=== PATIENT | female | born 1995 | race Caucasian/White ===

== ENCOUNTER 2017-01-26 01:47 | Emergency (ER) | payer MEDICAID ==
--- NOTE | 2017-01-26 02:15 | EDM.PDOC ---
ED HPI GENERAL MEDICAL PROBLEM - General Chief Complaint: General Stated Complaint: BP HIGH? [id number] Time Seen by Provider: 01/26/17 01:50 Source of Information: Reports: Patient History Limitations: Reports: No Limitations - History of Present Illness INITIAL COMMENTS - FREE TEXT/NARRATIVE: ED with question of high BP, G1PO 37/6 Due February 08. Notes seen in clinic this week by Dr. Covarrubias and patient reports she was told that if BP greater than 140 she would be induced on Sunday. Occasional nausea after eating without vomiting , Headache this am but resolved. Feet feel more swollen and hands puffy. No noted contractions, no discharge. No urinary complaints. Occasional dizziness with position change. No visual changes Pelvic Pain Score (Numeric/FACES): 6 - Related Data Allergies Allergy/AdvReac Type Severity Reaction Status Date / Time Sulfa (Sulfonamide Allergy Airway Verified 01/26/17 01:53 Antibiotics) Tightness Home Meds: Home Meds . 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, Musculoskeletal History: Reports: None Neurological History: Reports: None Psychiatric History: Reports: None Endocrine/Metabolic History: Reports: None Hematologic History: Reports: None Immunologic History: Reports: None Oncologic (Cancer) History: Reports: None Dermatologic History: Reports: None Social & Family History - Tobacco Use Smoking Status *Q: Heavy Tobacco Smoker Years of Tobacco use: 2 Packs/Tins Daily: 0.5 - Caffeine Use Caffeine Use: Reports: Soda - Recreational Drug Use Recreational Drug Use: No ED ROS GENERAL - Review of Systems Review Of Systems: ROS reveals no pertinent complaints other than HPI. ED EXAM, GENERAL - Physical Exam Exam: See Below Exam Limited By: No Limitations General Appearance: Alert, No Apparent Distress Eye Exam: Bilateral Eye: EOMI, PERRL Ears: Normal External Exam, Normal TMs Nose: Normal Inspection Throat/Mouth: Normal Inspection Head: Atraumatic, Normocephalic Neck: Normal Inspection, Full Range of Motion Respiratory/Chest: No Respiratory Distress, Lungs Clear, Normal Breath Sounds Cardiovascular: Normal Peripheral Pulses, Regular Rate, Rhythm GI/Abdominal: Normal Bowel Sounds (Female) Exam: Heart Tones (140's), Other (Gravid uterus). No: Uterine Tenderness Neurological: Alert, Oriented, CN II-XII Intact, Normal Cognition, Normal Gait Psychiatric: Normal Affect Skin Exam: Warm, Dry, Intact, Normal Color Course - Vital Signs Last Recorded V/S: Last Vital Signs Temp 97.2 F 01/26/17 01:49 Pulse 110 H 01/26/17 01:49 Resp 18 01/26/17 01:49 BP 113/79 01/26/17 02:44 Pulse Ox 99 01/26/17 01:49 - Orders/Labs/Meds Labs: Laboratory Tests 01/26/17 01/26/17 01/26/17 Range/Units 02:00 02:00 02:00 WBC (5.0-10.0) 10^3/uL RBC (4.2-5.4) 10^6/uL Hgb (12.0-16.0) g/dL Hct (37.0-47.0) % MCV (80-100) fL MCH (27.0-34.0) pg MCHC (33.0-35.0) g/dL Plt Count (150-450) 10^3/uL Neut % (Auto) (42.2-75.2) % Lymph % (Auto) (20.5-50.1) % Chel[place] % (Auto) (2-8) % Eos % (Auto) (1.0-3.0) % Baso % (Auto) (0.0-1.0) % PT (9.0-12.0) SEC INR (0.9-1.2) APTT (22.0-34.0) SEC Sodium (135-145) mmol/L Potassium (3.6-5.0) mmol/L Chloride (101-111) mmol/L Carbon Dioxide (21.0-31.0) mmol/L Anion Gap BUN (7-18) mg/dL Creatinine (0.6-1.3) mg/dL Est Cr Clr Drug Dosing mL/min Estimated GFR (MDRD) BUN/Creatinine Ratio Glucose (74-105) mg/dL Uric Acid (2.6-7.2) mg/dL Calcium (8.4-10.2) mg/dl Magnesium (1.8-2.5) mg/dL Total Bilirubin (0.2-1.0) mg/dL AST (10-42) IU/L ALT (10-60) IU/L Alkaline Phosphatase (42-121) IU/L Lactate Dehydrogenase (91-180) IU/L Total Protein (6.7-8.2) g/dl Albumin (3.2-5.5) g/dl Globulin Albumin/Globulin Ratio Urine Color Yellow (YELLOW) Urine Appearance Slightly cloudy (CLEAR) Urine pH 6.5 (5.0-9.0) Ur Specific Peerless 1.010 (1.005-1.030) Urine Protein Negative (NEGATIVE) Urine Glucose (UA) Negative (NEGATIVE) Urine Ketones Negative (NEGATIVE) Urine Occult Blood Negative (NEGATIVE) Urine Nitrite Negative (NEGATIVE) Urine Bilirubin Negative (NEGATIVE) Urine Urobilinogen 0.2 (0.2-1.0) mg/dL Ur Leukocyte Esterase Small H (NEGATIVE) Urine RBC Not seen /HPF Urine WBC 10-20 H (0-5/HPF) /HPF Ur Epithelial Cells Many H /HPF Urine Bacteria Occasional (0-FEW/HPF) /HPF Urine Mucus Occasional /LPF Ur Random Creatinine 40 mg/dL U Random Total Protein 8 (0.00-9.9) mg/dL Protein/Creatinin Ratio 0.20 Urine Opiates Screen Negative (NEGATIVE) Ur Oxycodone Screen Negative (NEGATIVE) Urine Methadone Screen Negative (NEGATIVE) Ur Barbiturates Screen Negative (NEGATIVE) U Tricyclic Antidepress Negative (NEGATIVE) Ur Phencyclidine Scrn Negative (NEGATIVE) Ur Amphetamine Screen Negative (NEGATIVE) U Methamphetamines Scrn Negative (NEGATIVE) Urine MDMA Screen Negative (NEGATIVE) U Benzodiazepines Scrn Negative (NEGATIVE) Urine Cocaine Screen Negative (NEGATIVE) U Marijuana (THC) Screen Negative (NEGATIVE) 01/26/17 01/26/17 01/26/17 Range/Units 02:02 02:02 02:02 WBC 18.2 H (5.0-10.0) 10^3/uL RBC 4.44 (4.2-5.4) 10^6/uL Hgb 13.5 (12.0-16.0) g/dL Hct 39.6 (37.0-47.0) % MCV 89.2 (80-100) fL MCH 30.4 (27.0-34.0) pg MCHC 34.1 (33.0-35.0) g/dL Plt Count 207 (150-450) 10^3/uL Neut % (Auto) 80.6 H (42.2-75.2) % Lymph % (Auto) 11.9 L (20.5-50.1) % Chel[place] % (Auto) 6.9 (2-8) % Eos % (Auto) 0.4 L (1.0-3.0) % Baso % (Auto) 0.2 (0.0-1.0) % PT 8.6 L (9.0-12.0) SEC INR 0.9 (0.9-1.2) APTT 26.1 (22.0-34.0) SEC Sodium 133 L (135-145) mmol/L Potassium 3.6 (3.6-5.0) mmol/L Chloride 105 (101-111) mmol/L Carbon Dioxide 20.0 L (21.0-31.0) mmol/L Anion Gap 11.6 BUN 7 (7-18) mg/dL Creatinine 0.4 L (0.6-1.3) mg/dL Est Cr Clr Drug Dosing 187.13 mL/min Estimated GFR (MDRD) > 60 BUN/Creatinine Ratio 17.50 Glucose 99 (74-105) mg/dL Uric Acid (2.6-7.2) mg/dL Calcium 9.0 (8.4-10.2) mg/dl Magnesium 1.7 L (1.8-2.5) mg/dL Total Bilirubin 0.5 (0.2-1.0) mg/dL AST 22 (10-42) IU/L ALT 29 (10-60) IU/L Alkaline Phosphatase 115 (42-121) IU/L Lactate Dehydrogenase (91-180) IU/L Total Protein 7.1 (6.7-8.2) g/dl Albumin 3.6 (3.2-5.5) g/dl Globulin 3.5 Albumin/Globulin Ratio 1.03 Urine Color (YELLOW) Urine Appearance (CLEAR) Urine pH (5.0-9.0) Ur Specific Peerless (1.005-1.030) Urine Protein (NEGATIVE) Urine Glucose (UA) (NEGATIVE) Urine Ketones (NEGATIVE) Urine Occult Blood (NEGATIVE) Urine Nitrite (NEGATIVE) Urine Bilirubin (NEGATIVE) Urine Urobilinogen (0.2-1.0) mg/dL Ur Leukocyte Esterase (NEGATIVE) Urine RBC /HPF Urine WBC (0-5/HPF) /HPF Ur Epithelial Cells /HPF Urine Bacteria (0-FEW/HPF) /HPF Urine Mucus /LPF Ur Random Creatinine mg/dL U Random Total Protein (0.00-9.9) mg/dL Protein/Creatinin Ratio Urine Opiates Screen (NEGATIVE) Ur Oxycodone Screen (NEGATIVE) Urine Methadone Screen (NEGATIVE) Ur Barbiturates Screen (NEGATIVE) U Tricyclic Antidepress (NEGATIVE) Ur Phencyclidine Scrn (NEGATIVE) Ur Amphetamine Screen (NEGATIVE) U Methamphetamines Scrn (NEGATIVE) Urine MDMA Screen (NEGATIVE) U Benzodiazepines Scrn (NEGATIVE) Urine Cocaine Screen (NEGATIVE) U Marijuana (THC) Screen (NEGATIVE) 01/26/17 Range/Units 02:02 WBC (5.0-10.0) 10^3/uL RBC (4.2-5.4) 10^6/uL Hgb (12.0-16.0) g/dL Hct (37.0-47.0) % MCV (80-100) fL MCH (27.0-34.0) pg MCHC (33.0-35.0) g/dL Plt Count (150-450) 10^3/uL Neut % (Auto) (42.2-75.2) % Lymph % (Auto) (20.5-50.1) % Chel[place] % (Auto) (2-8) % Eos % (Auto) (1.0-3.0) % Baso % (Auto) (0.0-1.0) % PT (9.0-12.0) SEC INR (0.9-1.2) APTT (22.0-34.0) SEC Sodium (135-145) mmol/L Potassium (3.6-5.0) mmol/L Chloride (101-111) mmol/L Carbon Dioxide (21.0-31.0) mmol/L Anion Gap BUN (7-18) mg/dL Creatinine (0.6-1.3) mg/dL Est Cr Clr Drug Dosing mL/min Estimated GFR (MDRD) BUN/Creatinine Ratio Glucose (74-105) mg/dL Uric Acid 3.0 (2.6-7.2) mg/dL Calcium (8.4-10.2) mg/dl Magnesium (1.8-2.5) mg/dL Total Bilirubin (0.2-1.0) mg/dL AST (10-42) IU/L ALT (10-60) IU/L Alkaline Phosphatase (42-121) IU/L Lactate Dehydrogenase 111 (91-180) IU/L Total Protein (6.7-8.2) g/dl Albumin (3.2-5.5) g/dl Globulin Albumin/Globulin Ratio Urine Color (YELLOW) Urine Appearance (CLEAR) Urine pH (5.0-9.0) Ur Specific Peerless (1.005-1.030) Urine Protein (NEGATIVE) Urine Glucose (UA) (NEGATIVE) Urine Ketones (NEGATIVE) Urine Occult Blood (NEGATIVE) Urine Nitrite (NEGATIVE) Urine Bilirubin (NEGATIVE) Urine Urobilinogen (0.2-1.0) mg/dL Ur Leukocyte Esterase (NEGATIVE) Urine RBC /HPF Urine WBC (0-5/HPF) /HPF Ur Epithelial Cells /HPF Urine Bacteria (0-FEW/HPF) /HPF Urine Mucus /LPF Ur Random Creatinine mg/dL U Random Total Protein (0.00-9.9) mg/dL Protein/Creatinin Ratio Urine Opiates Screen (NEGATIVE) Ur Oxycodone Screen (NEGATIVE) Urine Methadone Screen (NEGATIVE) Ur Barbiturates Screen (NEGATIVE) U Tricyclic Antidepress (NEGATIVE) Ur Phencyclidine Scrn (NEGATIVE) Ur Amphetamine Screen (NEGATIVE) U Methamphetamines Scrn (NEGATIVE) Urine MDMA Screen (NEGATIVE) U Benzodiazepines Scrn (NEGATIVE) Urine Cocaine Screen (NEGATIVE) U Marijuana (THC) Screen (NEGATIVE) - Re-Assessments/Exams Free Text/Narrative Re-Assessment/Exam: 01/26/17 03:44 Initial BP elevated, Recheck had decreased. Monitor placed by OB nurse. Update to Dr. Covarrubias by OB nurse. Follow up in clinic next week as scheduled no other recommendations. Departure - Departure Time of Disposition: 02:52 Disposition: Home, Self-Care 01 Condition: good Clinical Impression: Third trimester , Nausea alone - Discharge Information Instructions: Third Trimester of , [id number] Referrals: Kip Covarrubias MD [Primary Care Provider] - Forms: ED Department Discharge Additional Instructions: rest follow up in clinic next week
[2017-01-26 02:31] LABS: CHLORIDE,CL 105 mmol/L (101-111); SODIUM,NA 133 mmol/L (135-145)
[2017-01-26 02:44] VITALS: BP 113/79
--- NOTE | 2017-01-26 14:47 | OBOUT ---
DATE: 01/26/2017 DATE AND TIME OF NST: DATE: 01/26/2017. TIME: 02:30 to 02:50. REASON FOR NST: 1. Intrauterine at 37+ weeks. 2. Transient hypertension. NST INTERPRETATION: During this time period, heart tone baseline is approximately 125, and there are at least two [id number] per minute accelerations, making this strip reactive, it is also noted to be reassuring. Tocometer reveals potential of 2 contractions. ASSESSMENT: 1. Non-stress test-reactive and reassuring. 2. Tocometer with a couple of contractions. PLAN: The patient was evaluated because she just was not feeling well. Was wondering about her blood pressure as she has had some increasing blood pressures, but not in the hypertension range over the clinic. She had initial blood pressure upon admission to the ER of 140/90, however with proper blood pressure checking and monitoring thereafter blood pressure was 113/79 as part of this NST, and no more episodes of hypertension elicited. Therefore, patient was sent home with precautions as well as reasons to return or go to the emergency room. She will follow up in the clinic next week. [facility] /[id number]
== END 2017-01-26 02:58 | disposition home or self-care (01) ==
LOC: DL.ED 01:47
DX: O99.89 Other specified diseases and conditions complicating pregnancy, childbirth and the puerperium (principal); R11.0 Nausea; O99.333 Smoking (tobacco) complicating pregnancy, third trimester; F17.210 Nicotine dependence, cigarettes, uncomplicated; Z88.2 Allergy status to sulfonamides; Z3A.37 37 weeks gestation of pregnancy
CPT/HCPCS: 36415; 80053; 80305; 81001; 82570; 83615; 83735; 84156; 84550; 85025; 85610; 85730; 99284

== ENCOUNTER 2017-02-11 22:39 | Inpatient (IN) | payer MEDICAID ==
[~2017-02-11 22:39] MED LIST: Oxytocin/Normal Saline 30 UNIT/500 ML BAG IV ONE
[2017-02-11] MEDS ORDERED: ceFAZolin 2 GM in Premix Bag 1 BAG IV ONE (23:37)
[2017-02-11] MEDS ORDERED: Sodium Chloride 0.9% 10 ML Syringe FLUSH PRN (23:37)
[2017-02-11] MEDS ORDERED: Citric Acid/Sodium Citrate Solution 30 ML Cup PO ONE (23:37)
[2017-02-11] MEDS ORDERED: Methylergonovine 0.2 MG Tab PO PRN (23:37)
[2017-02-11] MEDS ORDERED: Carboprost Tromethamine 250 MCG/1 ML Amp IM PRN (23:37)
[2017-02-11] MEDS ORDERED: Oxytocin/Normal Saline 30 UNIT/500 ML BAG IV SCH (23:45)
--- NOTE | 2017-02-12 01:07 | PCM.PREANE ---
Preanesthetic Assessment - Procedure Proposed Procedure: Section - Anesthesia/Transfusion/Family Hx Anesthesia History: No Prior Anesthesia Type of Anesthesia Reaction: Unknown Family History of Anesthesia Reaction: No Transfusion History: No Prior Transfusion(s) Intubation History: Unknown - Review of Systems General: No Symptoms Pulmonary: No Symptoms Cardiovascular: No Symptoms Gastrointestinal: No symptoms Neurological: No Symptoms Other: Reports: None - Physical Assessment NPO Status Date: 02/11/17 NPO Status Time: 21:00 Pulse: 98 O2 Sat by Pulse Oximetry: 96 Respiratory Rate: 22 Blood Pressure: 156/78 Temperature: 97.6 C Height: 1.6 m Weight: 101.605 kg ASA Class: 2E Mental Status: Alert & Oriented x3 Airway Class: Mallampati = 3 Dentition: Reports: Normal Dentition Thyro-Mental Finger Breadths: 2 Mouth Opening Finger Breadths: 3 ROM/Head Extension: Full Lungs: Clear to auscultation, Normal respiratory effort Cardiovascular: Regular Rate, Regular Rhythm - Lab Values: Laboratory Last Values WBC 20.3 10^3/uL (5.0-10.0) H 02/11/17 23:20 RBC 4.46 10^6/uL (4.2-5.4) 02/11/17 23:20 Hgb 13.5 g/dL (12.0-16.0) 02/11/17 23:20 Hct 40.1 % (37.0-47.0) 02/11/17 23:20 MCV 89.9 fL (80-100) 02/11/17 23:20 MCH 30.3 pg (27.0-34.0) 02/11/17 23:20 MCHC 33.7 g/dL (33.0-35.0) 02/11/17 23:20 Plt Count 183 10^3/uL (150-450) 02/11/17 23:20 Neut % (Auto) 82.6 % (42.2-75.2) H 02/11/17 23:20 Lymph % (Auto) 10.5 % (20.5-50.1) L 02/11/17 23:20 Daniels % (Auto) 6.4 % (2-8) 02/11/17 23:20 Eos % (Auto) 0.3 % (1.0-3.0) L 05/28/17 23:20 Baso % (Auto) 0.2 % (0.0-1.0) 02/11/17 23:20 Blood Type AB POSITIVE 02/11/17 23:20 Gel Antibody Screen Negative 02/11/17 23:20 - Allergies Allergies/Adverse Reactions: Allergies Allergy/AdvReac Type Severity Reaction Status Date / Time Sulfa (Sulfonamide Allergy Airway Verified 01/26/17 01:53 Antibiotics) Tightness - Blood Blood Available: No Product(s) Available: None - Anesthesia Plan Pre-Op Medication Ordered: Antacids - Acknowledgements Anesthesia Type Planned: General Anesthesia, Spinal Pt an Appropriate Candidate for the Planned Anesthesia: Yes Alternatives and Risks of Anesthesia Discussed w Pt/Guardian: Yes Pt/Guardian Understands and Agrees with Anesthesia Plan: Yes Additional Comments: Risk Benefit of Spinal and general anesthesia explained to patient and agreed by patient. 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 [No Known Home Meds] 06/05/16 [History] - CURRENT (IN HOUSE) MEDS Current Meds: Current Medications Carboprost Tromethamine (Hemabate Ds) 250 mcg IM ASDIRECTED PRN PRN Reason: Excessive vaginal bleeding Stop: 02/18/17 23:38 Oxytocin/Sodium Chloride (Pitocin In Ns 30 Unit/500 Ml) 30 unit in 500 mls @ 500 mls/hr IV TITRATE JAIRON; 500 MUNITS/MIN PRN Reason: Protocol Methylergonovine Maleate (Methergine) 0.2 mg PO ONETIME PRN PRN Reason: Excessive vaginal bleeding Ondansetron HCl (Zofran) 4 mg IVPUSH Q4H PRN PRN Reason: Nausea/Vomiting Sodium Chloride (Saline Flush) 10 ml FLUSH ASDIRECTED PRN PRN Reason: Keep Vein Open Discontinued Medications Citric Acid/Sodium Citrate (Bicitra Solution) 30 ml PO ONETIME ONE Stop: 02/11/17 23:38 Cefazolin Sodium/Dextrose 2 gm (/ Premix) 50 mls @ 100 mls/hr IV ONETIME ONE Stop: 02/12/17 00:06 Last Admin: 02/11/17 23:51 Dose: 100 mls/hr
[2017-02-12] MEDS ORDERED: Meperidine PF 50 MG/ML Syringe ONE (01:36)
[2017-02-12] MEDS ORDERED: Morphine PF 150 MG/30 ML PCA Syringe IV SCH (02:00)
[2017-02-12] MEDS ORDERED: Acetaminophen/oxyCODONE 325-5 MG Tab PO PRN (02:01)
[2017-02-12] MEDS ORDERED: diphenhydrAMINE 50 MG/ML SDV IVPUSH PRN (02:01)
[2017-02-12] MEDS ORDERED: Acetaminophen 325 MG Tab PO PRN (02:01)
[2017-02-12] MEDS ORDERED: Methylergonovine 0.2 MG/1 ML Amp IM PRN (02:01)
[2017-02-12] MEDS ORDERED: Misoprostol 400 MCG (4 X 100 MCG TAB) RECTAL PRN (02:01)
[2017-02-12] MEDS ORDERED: Naloxone 2 MG/2 ML Syringe IVPUSH PRN (02:01)
[2017-02-12] MEDS: Lactated Ringers 1,000 ML IV SCH ×3 (02:15→17:50)
[2017-02-12] MEDS: Acetaminophen/oxyCODONE 325-5 MG Tab PO PRN ×6 (02:47→23:53)
--- NOTE | 2017-02-12 02:58 | OR ---
DATE: 02/12/2017 PREPROCEDURE DIAGNOSES: 1. intolerance of labor. 2. 1, para 0. 3. A 40 and 2/7th weeks intrauterine . 4. Anemia of . 5. Obesity. POSTPROCEDURE DIAGNOSES: 1. intolerance of labor. 2. 1, now para 1. 3. A 40 and 2/7th weeks intrauterine . 4. Anemia of . 5. Obesity. 6. Status post primary section under general anesthesia. BRIEF HISTORY: A 21-year-old female with the above-listed diagnoses, presented to the hospital in early stages of labor and had a heart tracing which was nonreactive, but reassuring and then suddenly had a deceleration down into the 60s that lasted over 5 minutes and it took about 4 to 5 minutes to recover after that and then baby was tachycardic with a nonreactive tracing. A cervix was checked and only 3 cm dilated, 90% effaced, and station was still rather high. Decision was made that baby would not be able to tolerate labor, and we are trying to reduce risk of going for an emergency under general anesthesia later and hoping to do this one under spinal. See admission history and physical for full details. PROCEDURE PERFORMED: Primary low transverse section without complications. ANESTHESIA: General, after at least 5 unsuccessful spinal attempts. Multiple Drill Operator reported patient has calcifications complicating the procedure. SURGEON: Jenny Bray MD. WATERWORKS EMPLOYEE: Ava Hernández MD. CONSENT: Discussed with the patient, her boyfriend, and roommate. Indications, risks, benefits, and alternatives of primary low transverse section for safe delivery of the infant. Discussed risk of infection and plan for preoperative antibiotics. Risk of bleeding to the point of requiring a blood transfusion as well as its inherent risk including contraction of blood-borne disease such as hepatitis or HIV and although blood is screened well, the risks still exist. Discussed risk of surgical injury included, but not limited to, injury of large blood vessels, nerves, veins, muscles, internal organs and structures such as intestines, bladder, uterus, fallopian tubes, ovaries, and any other adjacent structures and how repair of those would be managed. Also, discussed risk of the anesthetic, discussed risk that she or the baby could suffer injury or complications requiring transfer to another hospital for definitive care and that there was even remote risk of . She verbalized understanding and appropriate consent forms were signed and in the chart. PROCEDURE IN DETAIL: Corado indwelling catheter was placed in labor and delivery unit. The patient brought down to the operating room. Spinal anesthesia was attempted and unsuccessful, therefore the patient laid in the dorsal supine position with leftward tilt. An abdomen prepped and draped in the usual fashion. General anesthesia was then obtained and skin incision made at 12:39 a.m., and carried down to the underlying fascia with scalpel. Fascia then dissected with traction and Sneed scissors. Superior fascia was elevated and rectus muscles dissected off bluntly. Inferior fascial edge then grasped with Bassam's, tented up, and rectus muscles dissected off with Sneed scissors. Rectus muscles then in the midline with blunt finger dissection as was the peritoneal cavity, which was then extended with traction. Xiang O retractor was then placed in appropriate location of low transverse uterine incision made at the top of the bladder reflection until clear amniotic fluid was noted. Uterus was then penetrated with a finger and then hysterotomy site made with Bhardwaj method. Infant's head was brought up to the hysterotomy site and with fundal pressure 's head delivered followed readily thereafter by the remainder of the at 12:42 a.m. 's mouth and nose were bulb suctioned and three-vessel umbilical cord was doubly clamped and cut and baby taken to the warmer for further evaluation. Cord blood sample was obtained and placenta delivered by gentle cord traction and concomitant uterine massage. Remaining membranes were then removed with dry lap sponge and uterine cavity cleared of any clots and debris. Hysterotomy site was then closed with a running lock stitch of 0 Vicryl in the usual fashion. A second layer of imbricating stitches were used on the hysterotomy site with excellent hemostasis noted. Xiang retractor was then removed and pericolic gutters cleared of any clots and debris. Hysterotomy site reinspected and remained hemostatic. Bowel was complicating the procedure and getting in the way of closure, therefore a fish retractor was placed and the peritoneal lining closed with a running stitch of 0 Vicryl in a running fashion. This layer was then irrigated and cleared of any clots and debris and the fascia closed with a running stitch of 0 looped PDS in the usual fashion. Subcutaneous tissues were then cleared of all clots and debris and subcutaneous bleeders controlled with cautery. Skin was then closed with marisela, and the patient had tolerated the procedure well. COMPLICATIONS: None. ESTIMATED BLOOD LOSS: 600 mL. URINE OUTPUT: 200 mL clear yellow. IV FLUIDS: 1200 mL of crystalloids. FINDINGS: Viable female , scores of 9, 5, and 8. weight 8 pounds 12 ounces, 3970 g. Length of 19 inches. DISPOSITION: Mother and baby are doing well at this time. Mother is in the PACU for recovery and baby is down in the nursery. [facility] /[id number] BARBARA
[2017-02-12] MEDS: Ferrous Sulfate 325 MG Tab PO SCH ×2 (04:57→08:03)
[2017-02-12] MEDS ORDERED: HYDROmorphone 1 MG/ML Syringe IVPUSH ONE (05:12)
[2017-02-12] MEDS ORDERED: HYDROmorphone 1 MG/ML Syringe IVPUSH PRN (05:13)
[2017-02-12] MEDS: Ketorolac 30 MG/ML SDV IVPUSH SCH ×3 (08:02→19:22)
[2017-02-12] MEDS: Simethicone 80 MG Tab.Chew PO PRN ×2 (08:04→23:50)
[2017-02-12] MEDS: Docusate Sodium 100 MG Cap PO PRN ×2 (08:04→20:06)
[2017-02-12] MEDS: Ondansetron 4 MG/2 ML SDV IVPUSH PRN ×2 (09:06→18:14)
--- NOTE | 2017-02-12 11:17 | PCM.POSTAN ---
POST ANESTHESIA ASSESSMENT - MENTAL STATUS Mental Status: alert, oriented - VITAL SIGNS Pulse Rate: 82 SaO2: 98 Resp Rate: 20 Blood Pressure: 121/75 Temperature: 98 C - RESPIRATORY Respiratory Status: respiratory rate WNL, airway patent, O2 saturation stable - CARDIOVASCULAR CV Status: pulse rate WNL, blood pressure stable - GASTROINTESTINAL GI Status: no symptoms - PAIN Pain Score: 4 Free Text/Narrative:: Pain is better than expected. Rash improved after Morphine was discontinued. Tolerated Diludid well and initial dose seem to be sufficient for now. - POST OP HYDRATION Hydration Status: adequate & stable
--- NOTE | 2017-02-12 12:04 | PN ---
DATE: 02/12/2017 SUBJECTIVE: About 11-hour postop primary low transverse section under general anesthesia. The patient complains mostly of being tired and having some soreness down near the incision. No chest pain or shortness of breath. She needs an incentive spirometer and does not have one at the bedside. She reports she is not passing flatus. She had Corado catheter remains in place. Pain is fairly well controlled. Reports she had a couple of gushes of bleeding overnight, but nothing that was too heavy or severe. Happy that the baby is doing well and has no other concerns. PHYSICAL EXAMINATION: Vital Signs: Temperature is 98.7, pulse 73, blood pressure 119/52, respiratory rate of 16, O2 saturations 99% on room air. Heart: Regular without obvious murmur. Lungs: Clear to auscultation bilaterally. Abdomen: Soft. Fundus is firm and below the umbilicus. Dressing is clean, dry, and intact. Extremities: 1+ edema bilaterally. SCDs and SIDDHARTHA hose are on. No tenderness to palpation. No warmth to touch through the SIDDHARTHA hose. ASSESSMENT: 1. Status post primary low transverse section under general anesthesia. 2. 1, now para 1. 3. Obesity. 4. Teen mother. 5. Anemia of . 6. History of depression. PLAN: Anticipate normal cares. Continue to watch for signs and symptoms of depression or any other complications. We will get her up and ambulating later on tonight, and she can shower after 24 hours postoperatively. I will notify her primary care provider that she is now delivered, and see if he will be rounding on her prior to discharge as I believe he is currently on vacation. The patient's questions were answered, and she was satisfied with the plan as outlined. [facility] /[id number] BARBARA
[2017-02-13] MEDS: Ibuprofen 800 MG Tab PO PRN ×3 (03:03→20:11)
[2017-02-13] MEDS: Simethicone 80 MG Tab.Chew PO PRN ×5 (04:09→20:10)
[2017-02-13] MEDS: Acetaminophen/oxyCODONE 325-5 MG Tab PO PRN ×5 (04:09→20:11)
--- NOTE | 2017-02-13 07:18 | HP ---
CHIEF COMPLAINT: Increased force and frequency of contractions and no movement. HISTORY OF PRESENT ILLNESS: A 21-year-old, 1, para 0 currently at 40 and 1/7th weeks' gestation presented to Labor and Delivery reporting cramping and contractions that started last night and then around 7 o'clock this evening became stronger and closer together about every 7 to 9 minutes and then presented to Labor and Delivery around 11 o'clock p.m. with increased force and frequency of those contractions and also reporting that she had felt the baby move near as much as usual over the entire course of the day. No leakage of fluid or vaginal bleeding. No symptoms of preeclampsia. No other specific abnormalities noted. Very shortly after being on Labor and Delivery, heart tones went from a baseline of being in the 140s with moderate wrpd-vn-[id number] variability and nonreactive to a 5-minute deceleration down into the 60s and even low 50s for at least 5 minutes, which was very slow to recover. Baby is now tachycardic in the 180s with moderate [id number] variability. No accelerations. Contractions continue about every 2 minutes. OBSTETRICAL HISTORY: Good care. Dates by LMP match with 10-week ultrasound. Blood type AB positive. Antibody screen negative. Rubella immune. RPR nonreactive. Hepatitis B negative. HIV negative. Gonorrhea and chlamydia negative. TSH negative. Glucose tolerance test normal. Group B strep negative. She has a history of cholelithiasis during this and also treated for a positive gonorrhea test. Earlier on in the , test of cure was negative. Otherwise, primigravida and no other chronic problems listed. PAST MEDICAL HISTORY: 1. Obesity. 2. History of depression with suicidal behavior. FAMILY HISTORY: Negative for any bleeding problems, anesthesia problems, thyroid disease, defects. No chronic medical diseases such as heart disease, cancer, or thyroid complications. PAST SURGICAL HISTORY: None. SOCIAL HISTORY: Lives in [place] with Clyde Celis, father of the baby. She is not currently working. She is a smoker and also has some secondhand smoke exposure. Denies any alcohol or drug use this . ALLERGIES: Sulfa causes hives and rash. MEDICATIONS: 1. vitamin. 2. Iron. Other medications this would include: 1. Prevacid. 2. Tamiflu. 3. Amoxicillin. 4. Melatonin. 5. Rocephin. REVIEW OF SYSTEMS: No fever, chills, nausea, vomiting, diarrhea, constipation, recent skin rash, or respiratory infection. PHYSICAL EXAMINATION: Vital Signs: Blood pressure 128/71, pulse of 125, temperature 96.8, respiratory rate of 18, afebrile. HEENT: Grossly unremarkable. Heart: Regular without obvious murmur. Lungs: Clear to auscultation bilaterally. Abdomen: Gravid, soft, and nontender. Baby currently tracing at 160 beats per minute with moderate bpvu-oj-nobc variability. No accelerations noted. Contractions every 2 to 3 minutes. Cervix is 3 cm, 90% effaced. Bag of water intact. -2 station. Extremities: No edema, erythema, or tenderness noted. ASSESSMENT: 1. 1, para 0, currently at 40 and 1/7 weeks' gestation. 2. intolerance of labor in early parts of labor. 3. Obesity. 4. Iron deficiency of , currently on iron therapy. 5. History of depression. PLAN: I discussed with the patient, her boyfriend, and roommate the indications, risks, benefits, and alternatives of primary low transverse section. Discussed with them that if we are seeing this heart rate pattern later in labor, we could possibly tolerate continued labor; however, with her being remote from delivery, baby is very unlikely to be able to tolerate things and primary section under a spinal anesthetic rather than general is felt to be safer route of delivery. Discussed risk of infection and plan for preoperative antibiotics, risk of bleeding to the point of requiring a blood transfusion, as well as its inherent risks, risk of an operative risks including but not limited to, risk of injury to any large blood vessels, nerves, veins, internal organs, and adjacent structures including, but not limited to, fallopian tubes, ovaries, bladder, intestines, other organs or adjacent structures. Discussed risk of injury to the mother of baby to the point of requiring transfer to another facility, also remote risk of . The patient verbalized understanding and appropriate consent forms were signed and can be found in the chart. The patient will be taken to the operating room once it is available. [facility] /[id number]
[2017-02-13] MEDS: Ferrous Sulfate 325 MG Tab PO SCH (08:14)
[2017-02-13] MEDS: Docusate Sodium 100 MG Cap PO PRN ×2 (08:15→20:13)
--- NOTE | 2017-02-13 09:09 | PN ---
DATE: 02/13/2017 Postop day #1. SUBJECTIVE: The patient is tolerating p.o., ambulating, urinating, and passing flatus. She does describe some minimal pain with palpation of her firm uterus as well as mid to lower back pain with bruising noted. OBJECTIVE: Vital Signs: Temp 96.9, heart rate 69, blood pressure 109/53, and respiratory rate 16. Lungs: Clear to auscultation bilaterally. Heart: S1, S2. Regular Rate and rhythm. Firm uterus -1 below the umbilicus. Dressing around the Pfannenstiel wound appears to be dry and intact. Trace pedal edema. No calf pain. Back area reveals an area about 3-4 cm that is ecchymotic and minimally red with tenderness over this area with deeper palpation. ASSESSMENT AND PLAN: 1. Postoperative day #1, status post primary low transverse under general anesthesia with inability to perform spinal anesthesia with multiple attempts. 2. Back bruising and ecchymosis, most likely related to the above. We will continue to follow clinically and closely. No obvious neurologic signs or symptoms detected. We will have [facility] review as well with these rounds. LABORATORY DATA: Labs did reveal a white cell count 12.4, hemoglobin 10, and platelets 178,000. We will have her start iron as well. We will continue to follow clinically and closely. [facility] /[id number]
[2017-02-13] MEDS: Prenatal Multivitamin with Calcium/Folic Acid/Iron Tab PO SCH (12:04)
[2017-02-13] MEDS: Ondansetron 4 MG/2 ML SDV IVPUSH PRN (13:06)
[2017-02-14] MEDS: Simethicone 80 MG Tab.Chew PO PRN ×5 (00:13→23:59)
[2017-02-14] MEDS: Acetaminophen/oxyCODONE 325-5 MG Tab PO PRN ×7 (00:13→23:59)
[2017-02-14] MEDS: Ibuprofen 800 MG Tab PO PRN ×3 (04:04→20:31)
[2017-02-14] MEDS: Ferrous Sulfate 325 MG Tab PO SCH (08:28)
[2017-02-14] MEDS: Docusate Sodium 100 MG Cap PO PRN ×2 (08:29→20:07)
[2017-02-14] MEDS: Prenatal Multivitamin with Calcium/Folic Acid/Iron Tab PO SCH (08:29)
--- NOTE | 2017-02-14 10:51 | PN ---
DATE: 02/14/2017 Postop day #2, status post primary low transverse . SUBJECTIVE: The patient is tolerating p.o., ambulating, urinating, and passing flatus. Her pain is controlled. She did have some minimal tenderness throughout the night over her incision, and Aquacel dressing has been applied. OBJECTIVE: Vital Signs: Temperature 97.3, heart rate 82, blood pressure 113/60, and respiratory rate 18. Lungs: Clear to auscultation bilaterally. Heart: S1 and S2. Regular rate and rhythm. Abdomen: Firm uterus -1 below umbilicus. Aquacel dressing dry and intact. No calf pain. ASSESSMENT: 1. Postoperative day #2, status post primary low transverse section under general anesthesia due to difficulty starting spinal. 2. Anemia of acute blood loss. Hemoglobin dropped from 13.5 to 10. PLAN: We will continue to follow clinically and closely. Possible discharge tomorrow. Discussed with the patient. She understands and agrees with the above treatment plan. [facility] /[id number]
[2017-02-14] MEDS ORDERED: Lidocaine 1% 30 ML SDV INJECT ONE (15:50)
[2017-02-14] MEDS ORDERED: Midazolam 1 MG/ML 2 ML SDV IV ONE (15:50)
[2017-02-14] MEDS ORDERED: Glycopyrrolate 0.2 MG/ML 2 ML SDV IV ONE (15:50)
[2017-02-14] MEDS ORDERED: fentaNYL 250 MCG/5 ML SDV IV ONE (15:50)
[2017-02-14] MEDS ORDERED: Propofol 200 MG/20 ML SDV IV ONE (15:50)
[2017-02-14] MEDS ORDERED: Ketorolac 30 MG/ML SDV IVPUSH ONE (15:50)
[2017-02-14] MEDS ORDERED: Succinylcholine 200 MG/10 ML MDV IV ONE (15:50)
[2017-02-14] MEDS ORDERED: Neostigmine Methylsulfate 10 MG/10 ML MDV IV ONE (15:50)
[2017-02-14] MEDS ORDERED: Rocuronium 50 MG/5 ML Vial IV ONE (15:50)
[2017-02-14] MEDS ORDERED: Meperidine PF 50 MG/ML Syringe IV ONE (15:53)
[2017-02-15] MEDS: Ibuprofen 800 MG Tab PO PRN (03:52)
[2017-02-15] MEDS: Acetaminophen/oxyCODONE 325-5 MG Tab PO PRN (03:53)
[2017-02-15] MEDS: Prenatal Multivitamin with Calcium/Folic Acid/Iron Tab PO SCH (08:05)
[2017-02-15] MEDS: Ferrous Sulfate 325 MG Tab PO SCH (08:05)
[2017-02-15] MEDS: Simethicone 80 MG Tab.Chew PO PRN (08:06)
[2017-02-15] MEDS: Docusate Sodium 100 MG Cap PO PRN (08:07)
[2017-02-15 12:43] VITALS: BP 109/67
--- NOTE | 2017-02-16 07:47 | DISCH ---
ADMIT DIAGNOSES: 1. intolerance of labor. 2. 1, para 0. 3. 40 and 2/7 weeks' intrauterine . 4. Anemia of . 5. Obesity. DISCHARGE DIAGNOSES: 1. intolerance of labor. 2. 1, para 0. 3. 40 and 2/7 weeks' intrauterine . 4. Anemia of . 5. Obesity. 6. Status post primary under general anesthesia with difficulty starting spinal. PRESENT ILLNESS: Please see H and P done by Dr. Whitten. SUMMARY OF HOSPITAL COURSE: The patient was admitted on the above date with the above diagnoses, underwent a primary low transverse . Please see operative note for further details. This was done under general anesthesia as difficulty starting spinal was noted. Postop day #1 and #2, please see progress notes. Postop day #3, date of discharge, the patient tolerating POs, ambulating, urinating, passing flatus, requesting discharge. PHYSICAL EXAMINATION: Vital Signs: Last set of vitals updated and listed in the chart. Temperature 98.4, heart rate 82, blood pressure 114/60, respiratory rate 18. Lungs: Clear to auscultation bilaterally. Heart: S1 and S2. Regular rate and rhythm. Abdomen: Firm uterus around the umbilicus. Aquacel dressing appears dry and intact. Extremities: Trace pedal edema. No calf pain. LABORATORY DATA: Discharge labs reveal white cell count 10.3, hemoglobin 10.2, platelets 211. CONDITION ON DISCHARGE COMPARED TO CONDITION ON ADMISSION: Improved. DISCHARGE INSTRUCTIONS: 1. Diet as tolerated. 2. Activity: No lifting more than 20 pounds. No sit-ups, straining, and pelvic rest for next 6 weeks with immediate return to fertility discussed with the patient. 3. Reasons to return or go to the emergency room was discussed with the patient in detail to include, but not limited to, temperature of greater than 100.4, foul-smelling discharge, red or tender breasts, or increased vaginal bleeding. DISCHARGE MEDICATIONS: 1. Lpkx-puc-ubaiakz ibuprofen for pain. 2. Percocet 5/325 one to two q.6 hours p.r.n., #30, no refills. Discussed the use of these medication, adverse and wanted effects, as well precautions while driving. FOLLOWUP: Follow up next week on Sunday02/19/2017 for staple removal as well as with her baby. The patient understands and agrees with the above treatment plan. Ramifications of not following up were also discussed. [facility] /[id number]
== END 2017-02-15 12:57 | disposition home or self-care (01) | DRG 766 ==
LOC: DL.OBCHECK 22:39 → DL.OB 23:18 → OBSVTOIN 02-12 00:42
PROVIDERS: ADMIT Family Medicine; ATTEND Family Medicine
PROC: 10D00Z1 Extraction of Products of Conception, Low, Open Approach (ICD-10-PCS; principal; 2017-02-12)
DX: O76 Abnormality in fetal heart rate and rhythm complicating labor and delivery (principal); O99.02 Anemia complicating childbirth; O99.214 Obesity complicating childbirth; Z3A.40 40 weeks gestation of pregnancy; Z37.0 Single live birth
CPT/HCPCS: 01961; 36415; 85025; 85027; 86850; 86900; 86901; 94010; A9270-GY; J0330; J0690; J1170; J1200; J1885; J2175; J2250; J2274; J2405; J2590; J2704; J2710; J3010; J3490; J7120

== ENCOUNTER 2017-05-13 01:46 | Emergency (ER) | payer MEDICAID ==
[2017-05-13 01:55] VITALS: BP 134/75
--- NOTE | 2017-05-13 02:02 | EDM.PDOC ---
ED HPI GENERAL MEDICAL PROBLEM - General Stated Complaint: SEVERE STOMACH PAIN AND BACK PAIN Time Seen by Provider: 05/13/17 01:55 Source of Information: Reports: Patient History Limitations: Reports: No Limitations - History of Present Illness INITIAL COMMENTS - FREE TEXT/NARRATIVE: states been having on-off pain in her spines and across her upper abd' since having baby in January. states had appt for GB U.S but slept in and never it and didn't call for re-appt' Upper Abdomen Pain Score (Numeric/FACES): 9 - Related Data Allergies Allergy/AdvReac Type Severity Reaction Status Date / Time Sulfa (Sulfonamide Allergy Airway Verified 05/13/17 01:56 Antibiotics) Tightness Home Meds: Home Meds . 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, Musculoskeletal History: Reports: None Neurological History: Reports: None Psychiatric History: Reports: None Endocrine/Metabolic History: Reports: None Hematologic History: Reports: None Immunologic History: Reports: None Oncologic (Cancer) History: Reports: None Dermatologic History: Reports: None - Infectious Disease History Infectious Disease History: Reports: Chicken Pox Social & Family History - Tobacco Use Smoking Status *Q: Heavy Tobacco Smoker Years of Tobacco use: 2 Packs/Tins Daily: 0.5 Used Tobacco, but Quit: Yes Month Tobacco Last Used: may Second Hand Smoke Exposure: Yes - Caffeine Use Caffeine Use: Reports: Soda - Recreational Drug Use Recreational Drug Use: No ED ROS GENERAL - Review of Systems Review Of Systems: ROS reveals no pertinent complaints other than HPI. ED EXAM, GI/ABD - Physical Exam Exam: See Below Exam Limited By: No Limitations General Appearance: Alert, WD/WN, No Apparent Distress, Anxious Ears: Hearing Grossly Normal Throat/Mouth: Normal Voice, No Airway Compromise Head: Atraumatic Neck: Non-Tender, Full Range of Motion Respiratory/Chest: No Respiratory Distress Cardiovascular: Regular Rate, Rhythm GI/Abdominal Exam: Soft, Non-Tender. No: Distended, Guarding, Rigid, Rebound, Tender Neurological: Alert, Oriented, Normal Cognition, Normal Gait, No Motor/Sensory Deficits Psychiatric: Anxious Skin Exam: Warm, Dry, Normal Color Lymphatic: No Adenopathy Course - Vital Signs Last Recorded V/S: Last Vital Signs Temp 36.0 C 05/13/17 01:52 Pulse 90 05/13/17 01:52 Resp 16 05/13/17 01:52 BP 134/75 05/13/17 01:52 Pulse Ox 100 05/13/17 01:52 - Orders/Labs/Meds Labs: Laboratory Tests 05/13/17 05/13/17 Range/Units 02:00 02:00 WBC 10.0 (5.0-10.0) 10^3/uL RBC 4.89 (4.2-5.4) 10^6/uL Hgb 14.2 (12.0-16.0) g/dL Hct 43.4 (37.0-47.0) % MCV 88.8 (80-100) fL MCH 29.0 (27.0-34.0) pg MCHC 32.7 L (33.0-35.0) g/dL Plt Count 209 (150-450) 10^3/uL Neut % (Auto) 58.4 (42.2-75.2) % Lymph % (Auto) 32.4 (20.5-50.1) % [place] % (Auto) 7.2 (2-8) % Eos % (Auto) 1.5 (1.0-3.0) % Baso % (Auto) 0.5 (0.0-1.0) % Sodium 143 (135-145) mmol/L Potassium 3.8 (3.6-5.0) mmol/L Chloride 106 (101-111) mmol/L Carbon Dioxide 27.0 (21.0-31.0) mmol/L Anion Gap 13.8 BUN 10 (7-18) mg/dL Creatinine 0.7 (0.6-1.3) mg/dL Est Cr Clr Drug Dosing 106.93 mL/min Estimated GFR (MDRD) > 60 BUN/Creatinine Ratio 14.28 Glucose 101 (74-105) mg/dL Calcium 9.7 (8.4-10.2) mg/dl Total Bilirubin 0.4 (0.2-1.0) mg/dL AST 24 (10-42) IU/L ALT 17 (10-60) IU/L Alkaline Phosphatase 63 (42-121) IU/L Total Protein 7.5 (6.7-8.2) g/dl Albumin 4.5 (3.2-5.5) g/dl Globulin 3.0 Albumin/Globulin Ratio 1.50 Amylase 35 (28-100) U/L Lipase 31 (22-51) U/L - Re-Assessments/Exams Free Text/Narrative Re-Assessment/Exam: 05/13/17 02:42 results discussed with pt who was sleep, arousable no /o presently Departure - Departure Time of Disposition: 02:42 Disposition: Home, Self-Care 01 Condition: Good Clinical Impression: Cholangitis, recurrent - Discharge Information Instructions: Abdominal Pain, Adult, [id number] Forms: ED Department Discharge Additional Instructions: 1) avoid fatty oily fried foods 2) see clinic Sunday for reschedule GALL BLADDER ULTRASOUND rx given; zofran 4mg ODT bid prn x 6 vicodin 5/325mg bid prn x 6
[2017-05-13 02:27] LABS: CHLORIDE,CL 106 mmol/L (101-111); SODIUM,NA 143 mmol/L (135-145)
== END 2017-05-13 02:47 | disposition home or self-care (01) ==
LOC: DL.ED 01:46
DX: K83.0 Cholangitis (principal); F17.210 Nicotine dependence, cigarettes, uncomplicated; Z88.2 Allergy status to sulfonamides
CPT/HCPCS: 36415; 80053; 82150; 83690; 85025; 99284

== ENCOUNTER 2018-01-04 06:53 | Emergency (ER) | payer MEDICAID ==
[2018-01-04] MEDS ORDERED: Ondansetron 4 MG/2 ML SDV IV ONE (07:22)
[2018-01-04] MEDS ORDERED: Sodium Chloride 0.9% 1,000 ML IV ONE (07:22)
--- NOTE | 2018-01-04 07:28 | EDM.PDOC ---
ED HPI GENERAL MEDICAL PROBLEM - General Chief Complaint: Abdominal Pain Stated Complaint: GALLBLADDER Time Seen by Provider: 01/04/18 07:15 Source of Information: Reports: Patient History Limitations: Reports: No Limitations - History of Present Illness INITIAL COMMENTS - FREE TEXT/NARRATIVE: This 22 yo female patient reports to the ED with RUQ abdominal pain that started at 0500 this morning. The patient reports a history of gall stones when she was , but did not have surgery and has not followed up since her . The patient reports her last meal was yesterday at noon and she ate Mac and Cheese. The patient reports that she feels like her abdomen is going to explode. The patient does not think that she is at this time. The patient reports her pain is an 8/10 and has not taken anything at this time. Onset: Today Onset Date: 01/04/18 Onset Time: 05:00 Duration: Constant Location: Reports: Abdomen (RUQ) Quality: Reports: Sharp, Stabbing Severity: Severe Improves with: Reports: None Worsens with: Reports: None Context: Reports: Other Associated Symptoms: Reports: No Other Symptoms Right Upper Abdomen Pain Score (Numeric/FACES): 9 - Related Data Allergies Allergy/AdvReac Type Severity Reaction Status Date / Time Sulfa (Sulfonamide Allergy Airway Verified 05/13/17 01:56 Antibiotics) Tightness Home Meds: Home Meds . 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, Musculoskeletal History: Reports: None Neurological History: Reports: None Psychiatric History: Reports: None Endocrine/Metabolic History: Reports: None Hematologic History: Reports: None Immunologic History: Reports: None Oncologic (Cancer) History: Reports: None Dermatologic History: Reports: None - Infectious Disease History Infectious Disease History: Reports: Chicken Pox - Past Surgical History Female Surgical History: Reports: Section Social & Family History - Tobacco Use Smoking Status *Q: Heavy Tobacco Smoker Years of Tobacco use: 2 Packs/Tins Daily: 0.5 Used Tobacco, but Quit: Yes Month/Year Tobacco Last Used: may Second Hand Smoke Exposure: Yes - Caffeine Use Caffeine Use: Reports: Soda - Recreational Drug Use Recreational Drug Use: No ED ROS GENERAL - Review of Systems Review Of Systems: ROS reveals no pertinent complaints other than HPI. ED EXAM, GI/ABD - Physical Exam Exam: See Below Exam Limited By: No Limitations General Appearance: Alert, WD/WN, Moderate Distress, Obese Eyes: Bilateral: Normal Appearance, EOMI Ears: Normal External Exam, Normal Canal, Hearing Grossly Normal, Normal TMs Nose: Normal Inspection, Normal Mucosa, No Blood Throat/Mouth: Normal Inspection, Normal Lips, Normal Teeth, Normal Gums, Normal Oropharynx, Normal Voice, No Airway Compromise Head: Atraumatic, Normocephalic Neck: Normal Inspection, Supple, Non-Tender, Full Range of Motion Respiratory/Chest: No Respiratory Distress, Lungs Clear, Normal Breath Sounds, No Accessory Muscle Use, Chest Non-Tender Cardiovascular: Normal Peripheral Pulses, Regular Rate, Rhythm, No Edema, No Gallop, No JVD, No Murmur, No Rub GI/Abdominal Exam: Normal Bowel Sounds, No Organomegaly, No Distention, No Abnormal Bruit, No Mass, Guarding, Tender (RUQ) (Female) Exam: Deferred Rectal (Female) Exam: Deferred Back Exam: Normal Inspection, Full Range of Motion, NT Extremities: Normal Inspection, Normal Range of Motion, Non-Tender, Normal Capillary Refill, No Pedal Edema Neurological: Alert, Oriented, CN II-XII Intact, Normal Cognition, Normal Gait, Normal Reflexes, No Motor/Sensory Deficits Psychiatric: Normal Affect, Normal Mood Skin Exam: Warm, Dry, Intact, Normal Color, No Rash Lymphatic: No Adenopathy Course - Vital Signs Last Recorded V/S: Last Vital Signs Temp 36.3 C 01/04/18 10:12 Pulse 63 01/04/18 10:12 Resp 16 01/04/18 10:12 BP 100/50 L 01/04/18 10:12 Pulse Ox 99 01/04/18 10:12 - Orders/Labs/Meds Orders: Active Orders 24 hr Category Date Time Status Abdomen Ltd [US] Urgent Exams 01/04/18 08:15 Taken DRUG SCREEN URINE BIORAD [URCHEM] Stat Lab 01/04/18 08:04 Ordered HCG QUALITATIVE,URINE [URCHEM] Stat Lab 01/04/18 08:04 Ordered UA W/MICROSCOPIC [URIN] Stat Lab 01/04/18 08:04 Ordered Piperacillin/Tazobactam [Zosyn] 3.375 gm Med 01/04/18 10:20 Active Sodium Chloride 0.9% [Normal Saline] 100 ml IV ONETIME Medication Orders Piperacillin Sod/Tazobactam (Sod 3.375 gm/ Sodium Chloride) 100 mls @ 200 mls/ hr IV ONETIME ONE Stop: 01/04/18 10:49 Last Admin: 01/04/18 10:38 Dose: 200 mls/hr Labs: Laboratory Tests 01/04/18 01/04/18 01/04/18 Range/Units 07:27 07:27 07:27 WBC 14.0 H (5.0-10.0) 10^3/uL RBC 4.79 (4.2-5.4) 10^6/uL Hgb 14.2 (12.0-16.0) g/dL Hct 42.4 (37.0-47.0) % MCV 88.5 (80-100) fL MCH 29.6 (27.0-34.0) pg MCHC 33.5 (33.0-35.0) g/dL Plt Count 208 (150-450) 10^3/uL Neut % (Auto) 78.1 H (42.2-75.2) % Lymph % (Auto) 15.0 L (20.5-50.1) % [place] % (Auto) 6.2 (2-8) % Eos % (Auto) 0.4 L (1.0-3.0) % Baso % (Auto) 0.3 (0.0-1.0) % Sodium 137 (135-145) mmol/L Potassium 3.3 L (3.6-5.0) mmol/L Chloride 106 (101-111) mmol/L Carbon Dioxide 25.0 (21.0-31.0) mmol/L Anion Gap 9.3 BUN 8 (7-18) mg/dL Creatinine 0.6 (0.6-1.3) mg/dL Est Cr Clr Drug Dosing 123.72 mL/min Estimated GFR (MDRD) > 60 BUN/Creatinine Ratio 13.33 Glucose 111 H (74-105) mg/dL Calcium 9.0 (8.4-10.2) mg/dl Total Bilirubin 1.4 H (0.2-1.0) mg/dL AST 186 H (10-42) IU/L ALT 119 H (10-60) IU/L Alkaline Phosphatase 59 (42-121) IU/L Total Protein 7.1 (6.7-8.2) g/dl Albumin 4.2 (3.2-5.5) g/dl Globulin 2.9 Albumin/Globulin Ratio 1.45 Amylase 33 (28-100) U/L Lipase 17 L (22-51) U/L Urine Color (YELLOW) Urine Appearance (CLEAR) Urine pH (5.0-9.0) Ur Specific [place] (1.005-1.030) Urine Protein (NEGATIVE) Urine Glucose (UA) (NEGATIVE) Urine Ketones (NEGATIVE) Urine Occult Blood (NEGATIVE) Urine Nitrite (NEGATIVE) Urine Bilirubin (NEGATIVE) Urine Urobilinogen (0.2-1.0) mg/dL Ur Leukocyte Esterase (NEGATIVE) Urine RBC /HPF Urine WBC (0-5/HPF) /HPF Ur Epithelial Cells /HPF Calcium Oxalate Crystal /HPF Urine Bacteria (0-FEW/HPF) /HPF Urine Mucus /LPF Urine Other Urine HCG, Qual Urine Opiates Screen (NEGATIVE) Ur Oxycodone Screen (NEGATIVE) Urine Methadone Screen (NEGATIVE) Ur Barbiturates Screen (NEGATIVE) U Tricyclic Antidepress (NEGATIVE) Ur Phencyclidine Scrn (NEGATIVE) Ur Amphetamine Screen (NEGATIVE) U Methamphetamines Scrn (NEGATIVE) Urine MDMA Screen (NEGATIVE) U Benzodiazepines Scrn (NEGATIVE) Urine Cocaine Screen (NEGATIVE) U Marijuana (THC) Screen (NEGATIVE) 01/04/18 01/04/18 01/04/18 Range/Units 08:04 08:04 08:04 WBC (5.0-10.0) 10^3/uL RBC (4.2-5.4) 10^6/uL Hgb (12.0-16.0) g/dL Hct (37.0-47.0) % MCV (80-100) fL MCH (27.0-34.0) pg MCHC (33.0-35.0) g/dL Plt Count (150-450) 10^3/uL Neut % (Auto) (42.2-75.2) % Lymph % (Auto) (20.5-50.1) % [place] % (Auto) (2-8) % Eos % (Auto) (1.0-3.0) % Baso % (Auto) (0.0-1.0) % Sodium (135-145) mmol/L Potassium (3.6-5.0) mmol/L Chloride (101-111) mmol/L Carbon Dioxide (21.0-31.0) mmol/L Anion Gap BUN (7-18) mg/dL Creatinine (0.6-1.3) mg/dL Est Cr Clr Drug Dosing mL/min Estimated GFR (MDRD) BUN/Creatinine Ratio Glucose (74-105) mg/dL Calcium (8.4-10.2) mg/dl Total Bilirubin (0.2-1.0) mg/dL AST (10-42) IU/L ALT (10-60) IU/L Alkaline Phosphatase (42-121) IU/L Total Protein (6.7-8.2) g/dl Albumin (3.2-5.5) g/dl Globulin Albumin/Globulin Ratio Amylase (28-100) U/L Lipase (22-51) U/L Urine Color Dark yellow (YELLOW) Urine Appearance Slightly cloudy (CLEAR) Urine pH 6.0 (5.0-9.0) Ur Specific [place] >= 1.030 (1.005-1.030) Urine Protein 30 H (NEGATIVE) Urine Glucose (UA) Negative (NEGATIVE) Urine Ketones Trace H (NEGATIVE) Urine Occult Blood Negative (NEGATIVE) Urine Nitrite Negative (NEGATIVE) Urine Bilirubin Moderate H (NEGATIVE) Urine Urobilinogen >=8.0 H (0.2-1.0) mg/dL Ur Leukocyte Esterase Negative (NEGATIVE) Urine RBC 0-5 /HPF Urine WBC 0-5 (0-5/HPF) /HPF Ur Epithelial Cells Many H /HPF Calcium Oxalate Crystal Few H /HPF Urine Bacteria Few (0-FEW/HPF) /HPF Urine Mucus Many H /LPF Urine Other See note Urine HCG, Qual Negative Urine Opiates Screen Negative (NEGATIVE) Ur Oxycodone Screen Negative (NEGATIVE) Urine Methadone Screen Negative (NEGATIVE) Ur Barbiturates Screen Negative (NEGATIVE) U Tricyclic Antidepress Negative (NEGATIVE) Ur Phencyclidine Scrn Negative (NEGATIVE) Ur Amphetamine Screen Negative (NEGATIVE) U Methamphetamines Scrn Negative (NEGATIVE) Urine MDMA Screen Negative (NEGATIVE) U Benzodiazepines Scrn Negative (NEGATIVE) Urine Cocaine Screen Negative (NEGATIVE) U Marijuana (THC) Screen Negative (NEGATIVE) Meds: Medications Generic Name Dose Route Start Last Admin Trade Name Freq PRN Reason Stop Dose Admin Piperacillin Sod/Tazobactam 100 mls @ 200 mls/hr 01/04/18 10:20 01/04/18 10: 38 Sod 3.375 gm/ Sodium Chloride IV 01/04/18 10:49 200 mls/hr ONETIME ONE Administration Discontinued Medications Generic Name Dose Route Start Last Admin Trade Name Freq PRN Reason Stop Dose Admin Sodium Chloride 1,000 mls @ 999 mls/hr 01/04/18 07:22 01/04/18 08:12 Normal Saline IV 01/04/18 08:22 999 mls/hr .BOLUS ONE Administration Ondansetron HCl 4 mg 01/04/18 07:22 01/04/18 08:11 Zofran IV 01/04/18 07:23 4 mg ONETIME ONE Administration Departure - Departure Time of Disposition: 10:42 Disposition: DC/Tfer to Acute Hospital 02 Condition: Fair Clinical Impression: Acute cholecystitis - Discharge Information Instructions: Cholecystitis, [id number] Forms: Interfacility Transfer EMTALA Care Plan Goals: Discussed the examination, lab and ultrasound results with Dr. David ( Hospitalist with [facility] in [place]). Dr. David accepted the patient for continued evaluation and management. The patient will be transported by [facility]. - My Orders Last 24 Hours: My Active Orders 01/04/18 08:04 DRUG SCREEN URINE BIORAD [URCHEM] Stat HCG QUALITATIVE,URINE [URCHEM] Stat UA W/MICROSCOPIC [URIN] Stat 01/04/18 08:15 Abdomen Ltd [US] Urgent 01/04/18 10:20 Piperacillin/Tazobactam [Zosyn] 3.375 gm Sodium Chloride 0.9% [Normal Saline] 100 ml IV ONETIME - Assessment/Plan Last 24 Hours: My Active Orders 01/04/18 08:04 DRUG SCREEN URINE BIORAD [URCHEM] Stat HCG QUALITATIVE,URINE [URCHEM] Stat UA W/MICROSCOPIC [URIN] Stat 01/04/18 08:15 Abdomen Ltd [US] Urgent 01/04/18 10:20 Piperacillin/Tazobactam [Zosyn] 3.375 gm Sodium Chloride 0.9% [Normal Saline] 100 ml IV ONETIME
[2018-01-04 08:04] LABS: CHLORIDE,CL 106 mmol/L (101-111); SODIUM,NA 137 mmol/L (135-145)
[2018-01-04 10:13] VITALS: BP 100/50
[2018-01-04] MEDS ORDERED: Piperacillin/Tazobactam 3.375 GM in Sodium Chloride 0.9% 100 ML IV ONE (10:20)
== END 2018-01-04 11:00 ==
LOC: DL.ED 06:53
DX: K81.0 Acute cholecystitis (principal); Z88.2 Allergy status to sulfonamides; Z87.891 Personal history of nicotine dependence
CPT/HCPCS: 36415; 76705; 80053; 80305; 81001; 81025; 82150; 83690; 85025; 96361; 96374; 96375; 99285; J2405; J2543; J7030; J7050